=== PATIENT | female | born 1990 | race Hispanic/Latino ===

== ENCOUNTER 2024-12-21 06:00 | Day surgery (SDC) | payer OTHER ==
[~2024-12-21] VITALS: Ht 157.5 cm; Wt 73.7 kg
[~2024-12-21 06:00] MED LIST: OMEP40CA5 PO
[2024-12-21] MEDS ORDERED: LIDOCAINE 1% SDV 5ML VIAL SC PRN (06:20)
[2024-12-21 06:50] LABS: URINE PREG TEST NEGATIVE (NEGATIVE)
[2024-12-21 06:52] LABS: KETONE, URINE AUTO RFX NEGATIVE (NEGATIVE); LEUKOCYTE ESTERASE UR AUTO RFX NEGATIVE (NEGATIVE); NITRITE, URINE AUTO RFX NEGATIVE (NEGATIVE); RBC, URINE AUTO RFX 0 /HPF (0-3); SQUAM EPITHELIAL CELL UR AURFX 1 /HPF (0-6); WBC, URINE AUTO RFX 1 /HPF (0-3)
[2024-12-21 06:54] LABS: HEMATOCRIT 38.7 % (36.0-47.0); HEMOGLOBIN 13.1 g/dl (12.0-15.5); MEAN CORPUSCULAR HEMOGLOBIN 27.4 pg (27.0-33.0); MEAN CORPUSCULAR HGB CONC 33.9 g/dl (32.0-36.5); PLATELET COUNT, AUTOMATED 269 10^3/uL (150-450); RED BLOOD COUNT 4.78 10^6/uL (4.00-5.40); WHITE BLOOD COUNT 8.2 10^3/uL (4.0-10.0)
[2024-12-21] MEDS ORDERED: propofoL 200 MG/20 ML VIAL As Ordered ONE (06:59)
[2024-12-21] MEDS ORDERED: ROCURONIUM BROMIDE 50MG/5ML VIAL As Ordered ONE (06:59)
[2024-12-21] MEDS ORDERED: LIDOCAINE 2% 100MG/5ML SDV (FOR ANES.) As Ordered ONE (06:59)
[2024-12-21] MEDS ORDERED: ONDANSETRON 4MG 2ML VIAL As Ordered ONE (06:59)
[2024-12-21] MEDS ORDERED: SUGAMMADEX SODIUM 500 MG/5 ML VIAL (BRIDION) As Ordered ONE (06:59)
[2024-12-21] MEDS ORDERED: dexmedeTOMIDine (4MCG/ML)200MCG/50ML BTL (PRECEDEX) As Ordered ONE (06:59)
[2024-12-21] MEDS: SCOPOLAMINE 1MG TRANSDERMAL PATCH TOP ONE (07:04)
[2024-12-21] MEDS: LR 1,000 ML IV SCH (07:05)
[2024-12-21] MEDS: ACETAMINOPHEN 500 MG TAB PO ONE (07:05)
[2024-12-21] MEDS: ceFAZolin SOD 2 GM in IV 1 EA IV ONE (07:06)
[2024-12-21] MEDS ORDERED: fentaNYL 250 MCG/5 ML INJECTION As Ordered ONE (07:10)
[2024-12-21] MEDS ORDERED: MIDAZOLAM INJ 2MG/2ML VIAL As Ordered ONE (07:10)
[2024-12-21 07:18] LABS: BLOOD UREA NITROGEN 12 MG/DL (9-23); CALCIUM LEVEL 9.1 MG/DL (8.5-10.1); CARBON DIOXIDE LEVEL 28 MMOL/L (20-31); CHLORIDE LEVEL 103 MMOL/L (98-107); CREATININE FOR GFR 0.76 MG/DL (0.55-1.30); GLOMERULAR FILTRATION RATE > 60.0 (>60); GLUCOSE, FASTING 98 MG/DL (60-100); POTASSIUM SERUM 4.2 MMOL/L (3.5-5.1); SODIUM LEVEL 139 MMOL/L (136-145)
[2024-12-21] MEDS: metroNIDAZOLE 500 MG in IV 1 EA IV ONE (07:50)
[2024-12-21] MEDS ORDERED: HYDROmorphone HCL 2MG/ML 1ML VIAL As Ordered ONE (09:25)
[2024-12-21] MEDS ORDERED: KETOROLAC 60MG 2ML VIAL As Ordered ONE (10:11)
[2024-12-21] MEDS ORDERED: LR 1,000 ML IV SCH (10:20)
[2024-12-21] MEDS ORDERED: fentaNYL 100 MCG/2 ML INJECTION IV PRN (10:20)
[2024-12-21] MEDS ORDERED: HYDROMORPHONE HCL 0.5 MG/ 0.5 ML SYRINGE IV PRN (10:20)
[2024-12-21] MEDS: oxyCODONE 5MG TAB PO PRN (11:19)
[2024-12-21] MEDS: ONDANSETRON 4MG 2ML VIAL IV PRN ×2 (11:19→12:14)
[2024-12-21 13:25] VITALS: BP 114/63; TEMP 97.2; O2SAT 97
== END 2024-12-21 13:34 | disposition home or self-care (01) ==
LOC: M SDC 06:00
PROVIDERS: ATTEND Student in an Organized Health Care Education/Training Program
DX: N85.00 Endometrial hyperplasia, unspecified (principal); D27.0 Benign neoplasm of right ovary; N92.0 Excessive and frequent menstruation with regular cycle; E28.2 Polycystic ovarian syndrome
CPT/HCPCS: 36415; 58571; 58662; 80048; 81001; 81025; 84703; 85027; 86850; 86900; 86901; 88305; 88307; J0665; J0690; J1100; J1171; J1836; J1885; J2250; J2405; J3010

== ENCOUNTER → 2025-08-25 | Outpatient (CLI) | payer OTHER | LOC: M WHC 09:45 | PROVIDERS: ATTEND Nurse Practitioner Family | DX: R92.2 Inconclusive mammogram (principal); R92.333 Mammographic heterogeneous density, bilateral breasts; N63.10 Unspecified lump in the right breast, unspecified quadrant ==

== ENCOUNTER → 2025-09-25 | Outpatient (CLI) | payer OTHER | LOC: M WHC 14:28 | PROVIDERS: ATTEND Nurse Practitioner Family | DX: Z12.31 Encounter for screening mammogram for malignant neoplasm of breast (principal) ==